=== PATIENT | male | born 1995 | race Two or more races ===

== ENCOUNTER 2025-10-25 12:52 | Inpatient (IN) | payer MEDICAID, OTHER ==
[~2025-10-25] VITALS: Ht 172.7 cm; Wt 75.0 kg
--- NOTE | 2025-10-25 13:12 | ED.PDOC ---
History of Present Illness HPI Comments HPI: 30 year old male presents to the emergency department via EMS with a chief compliant of anxiety onset today. Per EMS, patient woke up this morning, was doing daily breathing exercise when he began experiencing shortness of breath, generalized numbness, called 911. Patient states he has been experiencing flu like symptoms including nasal congestion, cold, chills for the past 2 days. Upon ED arrival, shortness of breath has improved, currently experiencing anxiety. Denies chest pain, dizziness, fever, nausea, vomiting, diarrhea, blurred vision, headache. No other symptoms or modifying factors present at this time. Initial Vitals BP: 135/85 HR: 102 RR: 16 O2 Sat: 99% Temp: 97.9 F Past Medical history: Anxiety, OCD Past Surgical history: Denies Medications: Denies Social History: Denies smoking, ETOH, and drug use. Allergies: NKDA HPI: Poor Historian. REVIEW OF SYSTEMS: All symptoms have resolved by the time the patient arrived to the ED. CONSTITUTIONAL: Denies acute: fever, diaphoresis, chills, generalized weakness. HEAD: Denies acute: headache, photophobia Eyes: Denies acute: Double vision, vision loss, eye pain, eye discharge. EARS: Denies acute: tinnitus, hearing loss, ear discharge, ear pain, THROAT: Denies acute: sore throat, swelling, difficulty swallowing , pain with swall owing, change in voice. NECK: Denies acute: neck pain, neck swelling, stiff neck. HEART: Denies acute : chest pain, palpitations, LUNGS: Denies acute: SOB, wheezing, cough, hemoptysis ABDOMEN: Denies acute: abdominal pain, Nausea, Vomiting, diarrhea, melena , hematemesis, hematochezia SKIN: Denies acute: rash, redness, lesions, itchiness. EXTREMITIES: Denies acute: calf pain, numbness, tingling, weakness, denies pain in extremity. Denies acute: Low back pain. Neuro: Denies acute: focal neurological deficit, motor or sensory focal neurological deficit, tremors, seizure like activity, confusion, dizziness, change in mental status, loss of bowel or bladder function, cauda equina like symptoms. : Denies acute: dysuria, hematuria, flank pain, increase in urinary frequency. PSYCH: Denies acute: hallucination, suicidal ideation, homicidal ideation. PHYSICAL EXAM: General: ----no----acute distress, awake and alert. Slightly anxious Head: normocephalic, atraumatic. No raccoon's eyes, no agustin sign. Neck: supple, trachea is midline, no swelling. Throat: Normal phonation. Eyes:, no erythema, no purulent discharge, no proptosis, no icterus. Heart: Slight tachycardia, no significant murmur appreciated. Lungs: no apparent respiratory distress, Able to speak in full sentences. No wheezing, no rhonchi, no crackles. No stridors Clear to auscultation bilaterally. Abdomen: non tender to palpation, non distended, soft, no guarding, no rebound, + bowel sounds. Neuro: Awake, Alert, oriented to name, self, situation, follows commands GCS=15. Speech is normal. Skin: no petechia, no purpura, no cyanosis, non-pale, not jaundice. Lower extremities: --no - Pitting edema no deformity, no focal swelling, no calf TTP. Makes eye contact. moves all four extremities. Face: no apparent facial droop. Ambulating in the ED independently. ED COURSE: DISCLAIMER: This medical document was created using an electronic medical record system with voice recognition software and computerized dictation system. Although this document has been carefully reviewed, there might still be some phonetic and typographical errors. Occasional wrong-word or "sound-alike" substitutions may have occurred due to the inherent limitations of voice recognition software. These areas are purely typographical due to imperfections of the software programs and do not reflect any compromise in the patient's medical care. Please read the chart carefully and recognize, using context, where these substitutions have occurred. Chief Complaint: anxiety Time Seen by MD: 13:00 Reviewed Notes: Medications, Allergies Allergies: Coded Allergies: NO KNOWN ALLERGIES (Unverified , 10/25/25) Information Source: Patient, Emergency Med Personnel Mode of Arrival: EMS Timing: Hours Duration: Since onset Prehospital treatment: None Past Medical History PAST MEDICAL HISTORY: Anxiety Surgical History: Denies all surgeries Family History Family History: Reviewed,noncontributory to illness, No family hx of Cancer, No family hx of DM, No family hx of Heart alek, No family hx of HTN, No family hx ofKidney alek, No family hx of Liver alek, No family hx of Lung alek, No family hx of Stroke Social History Smoker: Non-Smoker Alcohol: Occasionally Drugs: Denies Drug Use Lives In: Home Was a procedure done? Was a procedure done?: No X-Ray, Labs, Meds, VS Vital Signs Date Time Temp Pulse Resp B/P (MAP) Pulse Ox O2 Delivery O2 Flow Rate FiO2 10/25/25 17:25 119 10/25/25 16:50 98.2 125 16 111/73 (86) 98 98.2 10/25/25 14:28 116 18 98 Room Air 10/25/25 14:28 98.1 116 18 136/88 (104) 98 98.1 10/25/25 13:00 97.9 102 18 135/85 99 97.9 10/25/25 13:00 18 99 Room Air* 0 21 Lab Test 10/25/25 14:35 10/25/25 13:10 Range/Units Urine Opiates Screen Neg NEGATIVE Urine Fentanyl Screen Neg NEGATIVE Urine Barbiturates Screen Neg NEGATIVE Urine Phencyclidine Screen Neg NEGATIVE Urine Amphetamines Screen Neg NEGATIVE Urine Benzodiazepines Screen Neg NEGATIVE Urine Cocaine Screen Neg NEGATIVE Urine Cannabinoids Screen Neg NEGATIVE White Blood Count 9.2 4.4-10.8 10^3/uL Red Blood Count 5.54 4.5-5.90 10^6/uL Hemoglobin 17.2 13.5-17.5 g/dL Hematocrit 50.2 41.0-53.0 % Mean Corpuscular Volume 90.7 80.0-100.0 fL Mean Corpuscular Hemoglobin 31.0 28.0-32.0 pg Mean Corpuscular Hemoglobin Concent 34.2 32.0-36.0 g/dL Red Cell Distribution Width 13.2 11.8-14.3 % Platelet Count 293 140-450 10^3/uL Mean Platelet Volume 7.8 6.9-10.8 fL Neutrophils (%) (Auto) 71.3 37.0-80.0 % Lymphocytes (%) (Auto) 18.7 10.0-50.0 % Monocytes (%) (Auto) 7.1 0.0-12.0 % Eosinophils (%) (Auto) 2.4 0.0-7.0 % Basophils (%) (Auto) 0.5 0.0-2.0 % Neutrophils # (Auto) 6.6 1.6-8.6 10 ^3/uL Lymphocytes # (Auto) 1.7 0.4-5.4 10 ^3/uL Monocytes # (Auto) 0.7 0-1.3 10 ^3/uL Eosinophils # (Auto) 0.2 0-0.8 10 ^3/uL Basophils # (Auto) 0 0-0.2 10 ^3/uL Nucleated Red Blood Cells 0.1 % Sodium Level 141 136-145 mmol/L Potassium Level 3.3 L 3.5-5.1 mmol/L Chloride Level 105 98-107 mmol/L Carbon Dioxide Level 25 20-31 mmol/L Anion Gap 11 5-15 Blood Urea Nitrogen 8 L 9-23 mg/dL Creatinine 0.87 0.700-1.30 mg/dL Glomerular Filtration Rate Calc 121 >90 mL/min BUN/Creatinine Ratio 9.2 L 10.0-20.0 Serum Glucose 106 74-106 mg/dL Calcium Level 9.8 8.7-10.4 mg/dL Magnesium Level 2.2 1.6-2.6 mg/dL Total Bilirubin 0.7 0.2-1.0 mg/dL Aspartate Amino Transferase (AST) 18 13-40 U/L Alanine Aminotransferase (ALT) 21 7-40 U/L Alkaline Phosphatase 100 46-116 U/L Total Protein 7.8 5.7-8.2 g/dL Albumin 4.9 H 3.2-4.8 g/dL Plasma/Serum Blood Alcohol < 3.0 <10 mg/dL Current Medications Medications (Trade) Dose Ordered Sig/Binu Route Start Time Stop Time Status Last Admin Sodium Chloride 1,000 ml @ 1,000 mls/hr Q1H ONCE IV 10/25/25 13:15 10/25/25 14:14 DC 10/25/25 14:46 Lorazepam (Ativan Tablet) 0.5 mg ONCE ONCE PO 10/25/25 15:00 10/25/25 15:01 DC 10/25/25 15:09 Lorazepam (Ativan Inj) 1 mg ONCE ONCE IV 10/25/25 16:45 10/25/25 16:46 DC 10/25/25 17:03 Time of 1ST Reevaluation: 13:30 Reevaluation 1ST: Unchanged Patient Education/Counseling: Diagnosis, Treatment Family Education/Counseling: No Family Present Departure 1 Departure Time of Disposition: 18:02 Impression: Primary Impression: Anxiety Additional Impression: Tachycardia Disposition: 09 ADMITTED INPATIENT Admit to: Tele Condition: Guarded Discharged With: Self Critical Care Note Critical Care Time?: No I personally scribed for HEYDI LEE DO ([email or web address]) on 10/25/25 at 13:12. Electronically submitted by Tory Stevens ([email or web address]). I personally scribed for HEYDI LEE DO ([email or web address]) on 10/25/25 at 13:18. Electronically submitted by Tory Stevens ([email or web address]). I personally scribed for HEYDI LEE DO ([email or web address]) on 10/25/25 at 13:22. Electronically submitted by Tory Stevens [email or web address]). HEYDI LEE DO Oct 25, 2025 13:12
[2025-10-25 14:02] LABS: Alanine Aminotransferase 21 U/L (7-40); Alkaline Phosphatase 100 U/L (46-116); Calcium 9.8 mg/dL (8.7-10.4); Carbon Dioxide 25 mmol/L (20-31); Chloride 105 mmol/L (98-107)
[2025-10-25 14:03] LABS: Anion Gap 11 (5-15); BUN/Creatinine Ratio 9.2 (10.0-20.0); Blood Urea Nitrogen 8 mg/dL (9-23); Glucose 106 mg/dL (74-106); Magnesium 2.2 mg/dL (1.6-2.6); Potassium 3.3 mmol/L (3.5-5.1); Sodium 141 mmol/L (136-145); Total Protein 7.8 g/dL (5.7-8.2)
[2025-10-25 14:04] LABS: Albumin 4.9 g/dL (3.2-4.8); Bilirubin, Total 0.7 mg/dL (0.2-1.0)
[2025-10-25 14:06] LABS: Hematocrit 50.2 % (41.0-53.0); Hemoglobin 17.2 g/dL (13.5-17.5); Mean Corpuscular Hemoglobin 31.0 pg (28.0-32.0); Mean Corpuscular Volume 90.7 fL (80.0-100.0); Nucleated Red Blood Cells % 0.1 %
[2025-10-25] MEDS: SODIUM CHLORIDE 0.9% 1,000 ML IV ONE (14:46)
[2025-10-25] MEDS: LORazepam 0.5 MG TAB PO ONE (15:09)
--- NOTE | 2025-10-25 15:51 | DVH ---
CHEST RADIOGRAPH INDICATION: sob TECHNIQUE: Single frontal view of the chest was obtained COMPARISON: None FINDINGS: Lines and Tubes: None Lungs: Clear Pleura: No effusion. No pneumothorax. Cardiomediastinal contours: Unremarkable Bones: Unremarkable IMPRESSION: 1. No acute disease.
[2025-10-25 16:31] LABS: Amphetamine Screen, Urine Neg (NEGATIVE); Barbiturate Scree,Urine Neg (NEGATIVE); Benzodiazephine Screen, Urine Neg (NEGATIVE); Cannabinoid Screen, Urine Neg (NEGATIVE); Cocaine Screen, Urine Neg (NEGATIVE); Opiate Scree,Urine Neg (NEGATIVE); Phencyclidine Screen, Urine Neg (NEGATIVE)
[2025-10-25] MEDS: LORazepam 2MG/ML-1ML VIAL IV ONE (17:03)
[2025-10-25 19:13] VITALS: PULSE 128; RESP 16; O2SAT 98
[2025-10-26 00:59] VITALS: BP 114/68; PULSE 90; RESP 18; TEMP 97.9; O2SAT 99
[2025-10-26] MEDS ORDERED: LORazepam 2MG/ML-1ML VIAL IV PRN (01:00)
[2025-10-26] MEDS ORDERED: PARoxetine 20 MG TAB PO SCH (01:00)
[2025-10-26] MEDS: POTASSIUM EFFERVESENT TAB 25 MEQ PO ONE (02:10)
[2025-10-26] MEDS: hydrOXYzine HCL 10 MG TAB PO ONE (02:11)
[2025-10-26 04:00] VITALS: BP 106/70; PULSE 86; RESP 18; TEMP 97.6; O2SAT 99
--- NOTE | 2025-10-26 04:26 | DVHHPRES ---
History of Present Illness Resident Creating Document: JENIFFER VILCHIS RESIDENT History of Present Illness Krystian Robbins is a 30 year old male with past medical history of anxiety, OCD presented to the hospital with complaints of shortness of breath and generalized numbness after he woke up from sleep. He also complains of associated nasal congestion and pounding in head. He reports a history of anxiety disorder. Patient states that he has had numbness in the bilateral limbs and eyelid twitching. He denies any fever, chest pain, constipation or diarrhea. PMHx:anxiety, OCD PSHx: None Family history: coronary artery disease in grandfather Social history: occasional smoking and alcohol use, CBD use Home medication: none Allergic history: seafood (shrimp) Review of Systems Review of Systems General: patient denies fever, fatigue, weaknes, sweating, any recent changes in appetite and weight HEENT: No headaches, visiual changes, hearing loss, tinnitus, nasal congestion and discharge, and sore throat. Cardiovascular: Denies chest pain, palpitations, dyspnea on exertion, orthopnea, or claudication. Respiratory: No cough, and wheezing. Gastrointestinal: Denies nausea, vomiting, dysphagia, odynophagia, heartburn, abdominal pain, flatulence, bloating, diarrhea, constipation, change in stool, or blood in stool. Genitourinary: No dysuria, hematuria, discharge, frequency, urgency, nocturia, incontinence, and urinary retention. Endocrine: No heat or cold intolerance, polydipsia, polyuria, and polyphagia. Neurological: No dizziness, extremity weakness and numbness, tremors, gait disturbance, seizures, and memory impairment. Psychiatric: Denies depression, anxiety,or insomnia. Musculoskeletal: Denies neck pain, stiffness and swelling, back pain, muscle weakness, joint pain, stiffness, swelling, or limited range of motion. Skin: No rashes, itching, skin lesion, changes in hair, nail, skin texture and breast. Hematologic/Lymphatic: Denies easy bruising, bleeding tendencies, or lymph node enlargement. Allergies: Coded Allergies: NO KNOWN ALLERGIES (Unverified , 10/25/25) Medications Current Medications Medications Dose Ordered Sig/Binu Route Start Time Stop Time Status Last Admin Dose Admin Paroxetine HCl 10 mg DAILY PO 10/26/25 01:00 Lorazepam 1 mg Q6HP PRN IV 10/26/25 01:00 Exam Vital Signs Vital Signs Date Time Temp Pulse Resp B/P (MAP) Pulse Ox O2 Delivery O2 Flow Rate FiO2 10/26/25 01:00 Room Air* 0 21 10/26/25 00:59 97.9 90 18 114/68 (83) 99 97.9 Exam General Appearance: Alert, Oriented X3, Cooperative, patient pacing in the hallway HEENT: Atraumatic, PERRLA, EOMI, Mucous membrane moist/pink Respiratory: Clear to auscultation, Normal air movement Cardiovascular: Regular rate, Normal S1, Normal S2, No murmurs, no chest wall tenderness Abdominal: Normal bowel sounds, Soft, No tenderness, No hepatospenomegaly, No masses Extremities: No clubbing, No cyanosis, No edema, Normal pulses, No tenderness/swelling Skin: No rashes, No breakdown, No significant lesion Neuro: Normal gait, Normal speech, Strength at 5/5 X4 ext, Normal tone, Sensation intact, Cranial nerves 3-12 NL, Reflexes 2+ Psych/Mental Status: anxious Labs/Xrays Labs Test 10/25/25 14:35 10/25/25 13:10 Range/Units Urine Opiates Screen Neg NEGATIVE Urine Fentanyl Screen Neg NEGATIVE Urine Barbiturates Screen Neg NEGATIVE Urine Phencyclidine Screen Neg NEGATIVE Urine Amphetamines Screen Neg NEGATIVE Urine Benzodiazepines Screen Neg NEGATIVE Urine Cocaine Screen Neg NEGATIVE Urine Cannabinoids Screen Neg NEGATIVE White Blood Count 9.2 4.4-10.8 10^3/uL Red Blood Count 5.54 4.5-5.90 10^6/uL Hemoglobin 17.2 13.5-17.5 g/dL Hematocrit 50.2 41.0-53.0 % Mean Corpuscular Volume 90.7 80.0-100.0 fL Mean Corpuscular Hemoglobin 31.0 28.0-32.0 pg Mean Corpuscular Hemoglobin Concent 34.2 32.0-36.0 g/dL Red Cell Distribution Width 13.2 11.8-14.3 % Platelet Count 293 140-450 10^3/uL Mean Platelet Volume 7.8 6.9-10.8 fL Neutrophils (%) (Auto) 71.3 37.0-80.0 % Lymphocytes (%) (Auto) 18.7 10.0-50.0 % Monocytes (%) (Auto) 7.1 0.0-12.0 % Eosinophils (%) (Auto) 2.4 0.0-7.0 % Basophils (%) (Auto) 0.5 0.0-2.0 % Neutrophils # (Auto) 6.6 1.6-8.6 10 ^3/uL Lymphocytes # (Auto) 1.7 0.4-5.4 10 ^3/uL Monocytes # (Auto) 0.7 0-1.3 10 ^3/uL Eosinophils # (Auto) 0.2 0-0.8 10 ^3/uL Basophils # (Auto) 0 0-0.2 10 ^3/uL Nucleated Red Blood Cells 0.1 % Sodium Level 141 136-145 mmol/L Potassium Level 3.3 L 3.5-5.1 mmol/L Chloride Level 105 98-107 mmol/L Carbon Dioxide Level 25 20-31 mmol/L Anion Gap 11 5-15 Blood Urea Nitrogen 8 L 9-23 mg/dL Creatinine 0.87 0.700-1.30 mg/dL Glomerular Filtration Rate Calc 121 >90 mL/min BUN/Creatinine Ratio 9.2 L 10.0-20.0 Serum Glucose 106 74-106 mg/dL Calcium Level 9.8 8.7-10.4 mg/dL Magnesium Level 2.2 1.6-2.6 mg/dL Total Bilirubin 0.7 0.2-1.0 mg/dL Aspartate Amino Transferase (AST) 18 13-40 U/L Alanine Aminotransferase (ALT) 21 7-40 U/L Alkaline Phosphatase 100 46-116 U/L Total Protein 7.8 5.7-8.2 g/dL Albumin 4.9 H 3.2-4.8 g/dL Plasma/Serum Blood Alcohol < 3.0 <10 mg/dL SEPSIS Sepsis Screen Date sepsis recognized/suspect: Oct 25, 2025 Time Sepsis recognized/suspect: 1808 Recent Procedure: No On Antibiotic Therapy: No Respiratory Rate >20: No Heart Rate >90: Yes Temp<36 C (96.8 F) or >38.3 C: No SBP <90 or MAP <65 mmHG: No New Acute Mental Status Change: No Is the patient on CPAP, BIPAP,: No Physician Orders Admit (10/25/25 23:39) Code Status (10/25/25 23:39) Complete Blood Count (10/26/25 04:00) Comprehensive Metabolic Panel (10/26/25 04:00) Condition: Fair (10/25/25 23:39) Urinalysis (10/26/25 00:51) Paroxetine Tablet (Paxil Tablet) (10/26/25 01:00) Lorazepam 2mg/Ml Inj (Ativan Inj) (10/26/25 01:00) Hiv 1&2 Antibody (10/26/25 00:51) Acute Hepatitis Panel (10/26/25 00:51) Regular Diet (10/26/25 Breakfast) Vital Signs Date Time Temp Pulse Resp B/P (MAP) Pulse Ox O2 Delivery O2 Flow Rate FiO2 10/26/25 01:00 Room Air* 0 21 10/26/25 00:59 97.9 90 18 114/68 (83) 99 97.9 10/26/25 00:19 101 16 131/79 (96) 97 10/25/25 21:17 98 18 118/80 (93) 99 Medications Medications Dose Ordered Sig/Binu Route Start Time Stop Time Status Last Admin Dose Admin Hydroxyzine HCl 10 mg ONCE ONCE PO 10/26/25 01:00 10/26/25 01:04 DC 10/26/25 02:11 10 MG Lorazepam 1 mg ONCE ONCE IV 10/25/25 16:45 10/25/25 16:46 DC 10/25/25 17:03 1 MG Potassium Bicarbonate 25 meq ONCE ONCE PO 10/26/25 00:15 10/26/25 00:40 DC 10/26/25 02:10 25 MEQ Assessment/Plan Assessment/Plan Assessment and plan Severe panic attack History of anxiety History of obsessive-compulsive disorder Started on paroxetine Ativan p.r.n. Hydroxyzine once EKG CBC, CMP, magnesium Psychiatric follow up as outpatient Follow up with PCP after discharge Hypokalemia Potassium 3.3 Replenished PUD prophylaxis: not needed DVT prophylaxis: ambulatory Barriers to discharge: Medical diagnosis and management in progress. Patient lives with family. Independent for ADL. PCP: None Specialist Relevent To Admission: None Case discussed with Dr. Fitzgerald. Code Status: Full Code. Complex patient care discussion needed. Spend total 31 minutes for bedside assessment, case discussion and management. Plan discussed with: Patient My Orders Orders - JENIFFER VILCHIS RESIDENT Procedure Category Date Status Time Admit ADMIT 10/25/25 Transmitted 23:39 Code Status CODE 10/25/25 Transmitted 23:39 Complete Blood Count LAB 10/26/25 Logged 04:00 Comprehensive LAB 10/26/25 Logged Metabolic Panel 04:00 Condition: Fair RUFINA 10/25/25 In Process 23:39 Urinalysis LAB 10/26/25 Logged 00:51 Paroxetine Tablet PHA 10/26/25 In Process (Paxil Tablet) 01:00 Lorazepam 2mg/Ml Inj PHA 10/26/25 In Process (Ativan Inj) 01:00 Hiv 1&2 Antibody LAB 10/26/25 Logged 00:51 Acute Hepatitis Panel LAB 10/26/25 Logged 00:51 Regular Diet DIET 10/26/25 Transmitted Breakfast Visit Coding STANDARD RES Billing Provider: MARIYA FITZGERALD MD Date of Service if different f: Oct 25, 2025 Common Visit Codes: 16762-OHIWEXH INP/OBS CARE (HIGH) Secondary Visit Codes: 10355-YGUQFGAL CARE PLAN 30 MINUTES JENIFFER VILCHIS RESIDENT Oct 26, 2025 04:26
--- NOTE | 2025-10-26 04:30 | DVHDSRES ---
Discharge Summary Date of Admission Resident Creating Document: JENIFFER VILCHIS RESIDENT Oct 25, 2025 at 23:39 Date of Discharge: Oct 26, 2025 Labs/Diagnostic Data: Laboratory Results Test 10/25/25 14:35 10/25/25 13:10 Urine Opiates Screen Neg (NEGATIVE) Urine Fentanyl Screen Neg (NEGATIVE) Urine Barbiturates Screen Neg (NEGATIVE) Urine Phencyclidine Screen Neg (NEGATIVE) Urine Amphetamines Screen Neg (NEGATIVE) Urine Benzodiazepines Screen Neg (NEGATIVE) Urine Cocaine Screen Neg (NEGATIVE) Urine Cannabinoids Screen Neg (NEGATIVE) White Blood Count 9.2 10^3/uL (4.4-10.8) Red Blood Count 5.54 10^6/uL (4.5-5.90) Hemoglobin 17.2 g/dL (13.5-17.5) Hematocrit 50.2 % (41.0-53.0) Mean Corpuscular Volume 90.7 fL (80.0-100.0) Mean Corpuscular Hemoglobin 31.0 pg (28.0-32.0) Mean Corpuscular Hemoglobin Concent 34.2 g/dL (32.0-36.0) Red Cell Distribution Width 13.2 % (11.8-14.3) Platelet Count 293 10^3/uL (140-450) Mean Platelet Volume 7.8 fL (6.9-10.8) Neutrophils (%) (Auto) 71.3 % (37.0-80.0) Lymphocytes (%) (Auto) 18.7 % (10.0-50.0) Monocytes (%) (Auto) 7.1 % (0.0-12.0) Eosinophils (%) (Auto) 2.4 % (0.0-7.0) Basophils (%) (Auto) 0.5 % (0.0-2.0) Neutrophils # (Auto) 6.6 10 ^3/uL (1.6-8.6) Lymphocytes # (Auto) 1.7 10 ^3/uL (0.4-5.4) Monocytes # (Auto) 0.7 10 ^3/uL (0-1.3) Eosinophils # (Auto) 0.2 10 ^3/uL (0-0.8) Basophils # (Auto) 0 10 ^3/uL (0-0.2) Nucleated Red Blood Cells 0.1 % Sodium Level 141 mmol/L (136-145) Potassium Level 3.3 mmol/L (3.5-5.1) Chloride Level 105 mmol/L (98-107) Carbon Dioxide Level 25 mmol/L (20-31) Anion Gap 11 (5-15) Blood Urea Nitrogen 8 mg/dL (9-23) Creatinine 0.87 mg/dL (0.700-1.30) Glomerular Filtration Rate Calc 121 mL/min (>90) BUN/Creatinine Ratio 9.2 (10.0-20.0) Serum Glucose 106 mg/dL (74-106) Calcium Level 9.8 mg/dL (8.7-10.4) Magnesium Level 2.2 mg/dL (1.6-2.6) Total Bilirubin 0.7 mg/dL (0.2-1.0) Aspartate Amino Transferase (AST) 18 U/L (13-40) Alanine Aminotransferase (ALT) 21 U/L (7-40) Alkaline Phosphatase 100 U/L (46-116) Total Protein 7.8 g/dL (5.7-8.2) Albumin 4.9 g/dL (3.2-4.8) Plasma/Serum Blood Alcohol < 3.0 mg/dL (<10) Other Laboratory Tests 10/25/25 13:10 Brief Hx & Hospital Course: as per H&P Condition at Discharge: Fair Final Diagnosis/Problems List Severe panic attack Hypokalemia History of anxiety History of obsessive-compulsive disorder Discharge Disposition: Home Discharge Instruct/Medications Follow Up/Referral: Follow up with psychiatrist in 1 week Follow up with PCP in 1 week Medications: Paroxetine 10 mg once daily for 7 days Scheduled Paroxetine (Paxil Tablet), 10 MG PO DAILY Discharge Statement: "Patient was advised to return to the ER or call 911 if any headaches, dizziness, shortness of breath, chest pain, abdominal pain, bleeding, fevers, or worsening of medical condition. Patient was counseled about treatment plan, medications, possible side effects, patientverbalized understanding. All questions were answered to the best of my ability. This discharge took greater then 30 minutes in planning, reviewing documentation, counseling the patient, and discussing with other team members." ASSESSMENT ASSESSMENT Assessment Visit Coding STANDARD RES Billing Provider: MARIYA FITZGERALD MD Date of Service if different f: Oct 26, 2025 Common Visit Codes: 76596-LYR/OBS DISCH DAY >30min JENIFFER VILCHIS RESIDENT Oct 26, 2025 04:30 MARIYA FITZGERALD MD Oct 28, 2025 23:52
[2025-10-26] MEDS ORDERED: PAR20T PO ×2 (04:33→06:13)
[2025-10-26 05:00] VITALS: BP 105/68; PULSE 77; RESP 18; TEMP 97.4; O2SAT 99
[2025-10-26 05:27] VITALS: BP 105/68; PULSE 77; RESP 18; TEMP 97.4; O2SAT 99
--- NOTE | 2025-10-26 06:58 | ECG ---
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
[2025-10-26 08:00] VITALS: PULSE 96; RESP 14; O2SAT 98
[2025-10-26 08:47] VITALS: BP 96/57; PULSE 96; RESP 14; TEMP 97; O2SAT 98
[2025-10-26 09:30] LABS: Hematocrit 44.6 % (41.0-53.0); Hemoglobin 15.3 g/dL (13.5-17.5); Mean Corpuscular Hemoglobin 31.2 pg (28.0-32.0); Mean Corpuscular Volume 90.9 fL (80.0-100.0); Nucleated Red Blood Cells % 0.1 %
[2025-10-26 09:37] LABS: Alanine Aminotransferase 17 U/L (7-40); Albumin 4.4 g/dL (3.2-4.8); Alkaline Phosphatase 81 U/L (46-116); Anion Gap 7 (5-15); BUN/Creatinine Ratio 10.0 (10.0-20.0); Bilirubin, Total 1.0 mg/dL (0.2-1.0); Blood Urea Nitrogen 9 mg/dL (9-23); Calcium 9.3 mg/dL (8.7-10.4); Carbon Dioxide 29 mmol/L (20-31); Chloride 106 mmol/L (98-107); Glucose 93 mg/dL (74-106); Potassium 4.3 mmol/L (3.5-5.1); Sodium 142 mmol/L (136-145); Total Protein 6.8 g/dL (5.7-8.2)
[2025-10-26 10:41] LABS: Hepatitis B Surface Antigen Negative (Negative)
[2025-10-26 11:09] LABS: Hepatitis C Antibody Negative (Negative)
== END 2025-10-26 13:54 | disposition home or self-care (01) | DRG 425 ==
LOC: ER 12:52 → EDBD 12:52 → OVERFLOW 23:39 → WEST WING 10-26 03:24
PROVIDERS: ADMIT Family Medicine; ATTEND Family Medicine
DX: E87.6 Hypokalemia (principal); F41.0 Panic disorder [episodic paroxysmal anxiety]; F41.9 Anxiety disorder, unspecified; F42.9 Obsessive-compulsive disorder, unspecified
CPT/HCPCS: 36415; 71045; 80053; 80074; 80307; 80320; 83735; 85025; 86703; 93005; 96361; 96374; G0378